=== PATIENT | male | born 1935 | race Caucasian/White ===

== ENCOUNTER → 2017-01-05 | Outpatient (CLI) | payer MEDICARE ==
[~2017-01-05] MED LIST: ASA CHILDREN'S81 MG PO; FLOMAX DPS0.4 MG PO; IRON18 MG PO; NORCO 5-325 TA1 EACH PO; NORVASC DPS10 MG PO
== END | disposition home or self-care (01) ==
LOC: RAD.S 10:09 → PTH.S 10:30 → RAD.S 11:00
DX: C18.3 Malignant neoplasm of hepatic flexure (principal); K57.30 Diverticulosis of large intestine without perforation or abscess without bleeding; N32.89 Other specified disorders of bladder

== ENCOUNTER → 2017-01-07 | Outpatient (CLI) | payer MEDICARE | END | disposition home or self-care (01) | LOC: PTH.S | DX: Z01.818 Encounter for other preprocedural examination (principal); R94.31 Abnormal electrocardiogram [ECG] [EKG]; I10 Essential (primary) hypertension; I51.7 Cardiomegaly; Z86.79 Personal history of other diseases of the circulatory system ==